=== PATIENT | male | born 1990 | race Caucasian/White ===

== ENCOUNTER 2017-12-10 09:52 | Emergency (ER) | payer MEDICAID, OTHER ==
[2017-12-10] MEDS ORDERED: Sodium Chloride 0.9% 1,000 ML IV STA (11:17)
[2017-12-10 11:33] LABS: BASO % 0.3 % (0.0-2.0); EOS # 0.1 K/uL (0.0-0.7); EOS % 0.7 % (0.0-4.0); HEMOGLOBIN 17.4 g/dL (12.0-18.0); LYMPH # 1.6 K/uL (1.0-4.3); LYMPH % 12.2 % (20.0-40.0); MEAN CELL VOLUME 86.8 fl (80.0-94.0); MEAN CORPUSCULAR HEMOGLOBIN 30.4 pg (27.0-31.0); MEAN PLATELET VOLUME 8.3 fl (7.2-11.7); MONO # 0.6 K/uL (0.0-0.8); MONO % 4.9 % (0.0-10.0); NEUT # 10.8 K/uL (1.8-7.0); NEUT % 81.9 % (50.0-75.0); NRBC % 0.1 % (0.0-0.0); RBC 5.74 Mil/uL (4.40-5.90); WHITE BLOOD COUNT 13.2 K/uL (4.8-10.8)
[2017-12-10 11:54] LABS: ALBUMIN 4.2 g/dL (3.5-5.0); BLOOD UREA NITROGEN 10 mg/dl (9-20); CALCIUM 9.4 mg/dL (8.4-10.2); GFR NON-AFRICAN AMERICAN > 60; LIPASE 104 U/L (23-300)
[2017-12-10 11:55] LABS: ALT/SGPT 76 U/L (21-72); AST/SGOT 72 U/L (17-59)
--- NOTE | 2017-12-10 12:10 | ED PDOC ---
HPI: Abdomen Time Seen by Provider: 12/10/17 10:00 Chief Complaint (Nursing): Abdominal Pain Chief Complaint (Provider): Abdominal Pain History Per: Patient History/Exam Limitations: no limitations Onset/Duration Of Symptoms: Days (x1) Current Symptoms Are (Timing): Still Present Additional Complaint(s): 27 year old male arrives to ED with a complaint of constant diarrhea and upper abdominal pain since 0600 this morning. Patient is unable to state quantity of diarrhea episodes but denies any fever, chills, or vomiting. PMD: none provided Past Medical History Reviewed: Historical Data, Nursing Documentation, Vital Signs Vital Signs: Last Vital Signs Temp 97.9 F 12/10/17 09:56 Pulse 64 12/10/17 09:56 Resp 19 12/10/17 09:56 BP 151/99 H 12/10/17 09:56 Pulse Ox 99 12/10/17 09:56 - Medical History PMH: No Chronic Diseases - Surgical History Surgical History: No Surg Hx - Family History Family History: States: Unknown Family Hx - Social History Current smoker - smoking cessation education provided: No Alcohol: None Drugs: Denies - Home Medications Home Medications: Ambulatory Orders Medication Instructions Recorded traMADol [Ultram] 50 mg PO TID #10 tab 04/12/14 Amoxicillin/Clavulanate Pota 1 tab PO BID #14 tab 10/24/14 [Augmentin 875 mg-125 mg] Erythromycin 0.5% [Ilytocin] 3.5 gm OS Q4 #1 tube 10/24/14 - Allergies Allergies/Adverse Reactions: Allergies Allergy/AdvReac Type Severity Reaction Status Date / Time No Known Allergies Allergy Verified 12/10/17 10:17 Review of Systems ROS Statement: Except As Marked, All Systems Reviewed And Found Negative Constitutional: Negative for: Fever, Chills Gastrointestinal: Positive for: Abdominal Pain (upper), Diarrhea. Negative for: Vomiting Physical Exam - Reviewed Nursing Documentation Reviewed: Yes Vital Signs Reviewed: Yes - Physical Exam Appears: Positive for: Well, Non-toxic, No Acute Distress Head Exam: Positive for: ATRAUMATIC, NORMAL INSPECTION, NORMOCEPHALIC Skin: Positive for: Normal Color Eye Exam: Positive for: Normal appearance ENT: Positive for: Normal ENT Inspection Neck: Positive for: Normal Cardiovascular/Chest: Positive for: Regular Rate, Rhythm Respiratory: Positive for: Normal Breath Sounds. Negative for: Respiratory Di stress Gastrointestinal/Abdominal: Positive for: Soft, Tenderness (epigastric mildly). Negative for: Mass, Other (LLQ, LRQ, or suprapubic tenderness) Extremity: Positive for: Normal ROM (upper/lower) Neurologic/Psych: Positive for: Alert, Oriented. Negative for: Motor/Sensory Deficits - Laboratory Results Result Diagrams: 12/10/17 11:25 12/10/17 11:25 - ECG O2 Sat by Pulse Oximetry: 99 (RA) Pulse Ox Interpretation: Normal Medical Decision Making Medical Decision Making: Time: 1120 Initial Plan: upper abdominal pain rule out gastritis, pancreatitis * Pepcid 20mg IVP * IV fluid * Labs Time: 1442 --Labs demonstrated elevated white count with shift and elevated LFT. Will order a scan. Patient reports some continued discomfort. Time: 174 CT Abdomen and Pelvis: FINDINGS: LOWER THORAX: No visible consolidation, pleural effusion, or pneumothorax. Small hiatal hernia/distal esophageal wall thickening. LIVER: Hepatomegaly. Hypoattenuation of the liver compatible with hepatic steatosis. GALLBLADDER AND BILE DUCTS: Cholelithiasis. PANCREAS: Unremarkable. SPLEEN: Unremarkable. ADRENALS: Unremarkable. KIDNEYS AND URETERS: The kidneys enhance symmetrically. No hydronephrosis or obstructing renal calculus. BLADDER: Contracted urinary bladder limits evaluation. REPRODUCTIVE: Unremarkable. APPENDIX: The appendix appears within normal limits of caliber. No secondary signs of acute appendicitis. BOWEL: The stomach is nondistended. The bowel loops appear within normal limits of caliber without evidence of intestinal obstruction. Mild wall thickening of the jejunum; correlate for enteritis. PERITONEUM: Small pelvic free fluid, unusual in a young male patient. No definite free air. LYMPH NODES: No bulky lymphadenopathy identified. VASCULATURE: No significant mural thickening or atherosclerotic calcifications identified. No aortic aneurysm. BONES: No acute osseous abnormality is detected. OTHER FINDINGS: None. IMPRESSION: Mild wall thickening of the jejunum; correlate for enteritis. Cholelithiasis. Hepatomegaly. Hypoattenuation of the liver compatible with hepatic steatosis. Small hiatal hernia/distal esophageal wall thickening. Small pelvic free fluid, unusual in a young male patient. pt made aware of CT resutls and given copy for follow up with clinic (no pcp) pt advised bland diet, lots of fluids and return w any worsening symptoms Scribe Attestation: Documented by Kimberly Barahona, acting as a scribe for Abdi Roper MD Provider Scribe Attestation: All medical record entries made by the Scribe were at my direction and personally dictated by me. I have reviewed the chart and agree that the record accurately reflects my personal performance of the history, physical exam, medical decision making, and the department course for this patient. I have also personally directed, reviewed, and agree with the discharge instructions Disposition - Clinical Impression Clinical Impression: Abdominal pain - Patient ED Disposition Is Patient to be Admitted: No Counseled Patient/Family Regarding: Studies Performed, Diagnosis, Need For Followup - Disposition Referrals: [facility] [Outside] [facility] [Outside] Disposition: Routine/Home Disposition Time: 18:00 Condition: IMPROVED Additional Instructions: follow up findings on CT with your doctor- follow up in the clinic in 1-2 days bland diet, lots of liquids return to the ED with any worsening or concerning symptoms Instructions: Diarrhea in Adolescents and Adults, Dix Diet, Stomach Ache and Stomach Upset Forms: [employer] (Jordanian), [employer] (Albanian), [facility] ED School/Work Excuse Print Language: KINYARWANDA
[2017-12-10] MEDS ORDERED: Iohexol 240 (50 ml) PO ONE (14:42)
[2017-12-10] MEDS ORDERED: Iohexol 240 (50 ml) ONE (14:55)
[2017-12-10 15:32] VITALS: TEMP 98.3
[2017-12-10] MEDS ORDERED: Iohexol 300 100 ML IJ ONE (16:37)
[2017-12-10] MEDS ORDERED: Sodium Chloride 0.9% 50 ML IV ONE (16:38)
--- NOTE | 2017-12-10 17:52 | CT ---
PROCEDURE: CT Abdomen and Pelvis with oral and IV contrast. HISTORY: abdominal pain COMPARISON: None available. TECHNIQUE: Contiguous axial images of the abdomen and pelvis. Oral and IV contrast was administered. Coronal and Sagittal reformats generated and reviewed. Contrast dose: 95 mL Omnipaque 300 Radiation dose: Total exam DLP = 947.62 mGy-cm. This CT exam was performed using one or more of the following dose reduction techniques: Automated exposure control, adjustment of the mA and/or kV according to patient size, and/or use of iterative reconstruction technique. FINDINGS: LOWER THORAX: No visible consolidation, pleural effusion, or pneumothorax. Small hiatal hernia/distal esophageal wall thickening. LIVER: Hepatomegaly. Hypoattenuation of the liver compatible with hepatic steatosis. GALLBLADDER AND BILE DUCTS: Cholelithiasis. PANCREAS: Unremarkable. SPLEEN: Unremarkable. ADRENALS: Unremarkable. KIDNEYS AND URETERS: The kidneys enhance symmetrically. No hydronephrosis or obstructing renal calculus. BLADDER: Contracted urinary bladder limits evaluation. REPRODUCTIVE: Unremarkable. APPENDIX: The appendix appears within normal limits of caliber. No secondary signs of acute appendicitis. BOWEL: The stomach is nondistended. The bowel loops appear within normal limits of caliber without evidence of intestinal obstruction. Mild wall thickening of the jejunum; correlate for enteritis. PERITONEUM: Small pelvic free fluid, unusual in a young male patient. No definite free air. LYMPH NODES: No bulky lymphadenopathy identified. VASCULATURE: No significant mural thickening or atherosclerotic calcifications identified. No aortic aneurysm. BONES: No acute osseous abnormality is detected. OTHER FINDINGS: None. IMPRESSION: Mild wall thickening of the jejunum; correlate for enteritis. Cholelithiasis. Hepatomegaly. Hypoattenuation of the liver compatible with hepatic steatosis. Small hiatal hernia/distal esophageal wall thickening. Small pelvic free fluid, unusual in a young male patient.
[2017-12-10 18:00] VITALS: O2SAT 99
[2017-12-10 19:42] VITALS: BP 125/84; PULSE 76; RESP 16
== END 2017-12-10 18:53 | disposition home or self-care (01) ==
LOC: H.ER 09:52
DX: R10.10 Upper abdominal pain, unspecified (principal); K44.9 Diaphragmatic hernia without obstruction or gangrene
CPT/HCPCS: 74177; 80053; 83690; 85025; 96361; 96374; 99284; J7030; Q9966; Q9967